=== PATIENT | female | born 1960 | race Caucasian/White ===

== ENCOUNTER → 2019-07-17 07:35 | Outpatient (CLI) | payer OTHER, SELFPAY ==
--- NOTE | ~2019-07-17 | US_ITS ---
EXAMINATION: US right upper quadrant DATE: 07/17/2019 08:17 INDICATION: Bloating. Early satiety. TECHNIQUE: Multiple grayscale and Doppler ultrasound images of the abdomen were obtained. COMPARISON: None FINDINGS: Abdominal aorta is normal in caliber. The visualized portions of the head, body, and tail o f the pancreas are normal. There is diffuse hepatic steatosis. There is normal flow in main portal ve in. The gallbladder is normal in size. No gallstones or gallbladder wall thickening. There was no son ographic Frausto sign. The common duct is normal and measures 3 mm. Right kidney is normal in size. IMPRESSION: 1. Diffuse hepatic steatosis. Reviewed, dictated and finalized at location A. MAN
== END ==
PROVIDERS: Visit Provider Obstetrics & Gynecology
DX: R14.0 Abdominal distension (gaseous) (principal); R68.81 Early satiety; Z01.419 Encounter for gynecological examination (general) (routine) without abnormal findings; Z11.51 Encounter for screening for human papillomavirus (HPV); K76.0 Fatty (change of) liver, not elsewhere classified
CPT/HCPCS: 76705

== ENCOUNTER → 2021-02-07 09:52 | Outpatient (CLI) | payer OTHER, SELFPAY ==
--- NOTE | ~2021-02-07 | MR_ITS ---
EXAMINATION: MR knee RT wo con DATE: 02/07/2021 10:41 INDICATION: Primary osteoarthritis of right knee. Right knee pain. TECHNIQUE: Magnetic resonance imaging (MRI) of the right knee was performed without intravenous contr ast. Sequences included axial PD-weighted FS FSE, coronal PD-weighted FSE and PD-weighted FS FSE, sag ittal PD-weighted FSE, and sagittal T2-weighted FS FSE. COMPARISON: None. FINDINGS: Medial compartment: There is a complex tear of body of medial meniscus. There is full-thickness cartilage loss of tibial condyle involving the medial articular surface with mild subchondral edema-like marrow signal intensi ty. There is full-thickness cartilage loss of femoral condyle involving the central and medial articu lar surface. There is extensive partial-thickness cartilage loss of femoral condyle and tibial condyl e. Marginal osteophytes are noted. Lateral compartment: Lateral meniscus is intact. There is deep partial thickness cartilage loss of tibial condyle involvin g the medial articular surface with mild subchondral edema-like marrow signal intensity. There is shelly p partial thickness cartilage loss of femoral condyle involving the central and medial articular surf layla. Osteophytes are noted. Patellofemoral compartment: There is deep partial thickness cartilage loss of patellar medial facet, median ridge, and lateral fa cet with moderate subchondral edema-like marrow signal intensity and lateral facet subchondral cysts. There is shallow partial-thickness cartilage loss of trochlea. Osteophytes are noted. Ligaments and tendons: The anterior and posterior cruciate ligaments are normal. There are changes of prior sprains of media l collateral ligament and fibular collateral ligament characterized by thickening and increased signa l intensity proximally. There is mild patellar tendinopathy. Fluid: There is a small knee joint effusion. IMPRESSION: 1. Severe chondrosis of medial compartment and moderate chondrosis of lateral and patellofemoral comp artments. 2. Tear of medial meniscus. 3. Small knee joint effusion. Reviewed, dictated and finalized at location A. IMPRESSION: 1. Severe chondrosis of medial compartment and moderate chondrosis of lateral a nd patellofemoral compartments. 2. Tear of medial meniscus. 3. Small knee joint effusion.
== END ==
DX: M17.11 Unilateral primary osteoarthritis, right knee (principal); M25.461 Effusion, right knee; S83.241A Other tear of medial meniscus, current injury, right knee, initial encounter
CPT/HCPCS: 73721

== ENCOUNTER → 2021-05-18 14:25 | Outpatient (CLI) | payer OTHER, SELFPAY ==
--- NOTE | ~2021-05-18 | MR_ITS ---
EXAMINATION: MR knee RT wo con DATE: 05/18/2021 15:10 INDICATION: Unilateral primary osteoarthritis of the right knee TECHNIQUE: Magnetic resonance imaging (MRI) of the right knee was performed without intravenous contr ast. Sequences included coronal PD-weighted FSE, coronal PD-weighted FS FSE, sagittal T2-weighted FS E, sagittal PD-weighted FS FSE and axial PD weighted fat saturated FSE. COMPARISON: None. FINDINGS: Medial compartment: Essentially absent medial meniscal body with relatively abrupt transition to normal-appearing body an d posterior horn which could represent sequela of prior partial meniscectomy in the appropriate clini serenity setting or meniscal tear with secondary meniscal degeneration. No evident displaced meniscal tiss ue although the cephalad-most aspect of the suprapatellar pouch is not included within the field-of-v iew of imaging. Severe joint space loss with extensive full/near full-thickness cartilage loss along the anterior to central weightbearing medial femoral condyle and along the medial side of the medial tibial plateau. There are regions of underlying increased subarticular marrow signal. Lateral compartment: Lateral meniscus is normal. Deep chondral ulceration and fissuring along the medial side of the later al tibial plateau with mild increased subarticular signal along the shoulder the intercondylar eminen ce. Additional partial thickness chondral ulceration and fissuring without degenerative subchondral c hanges at the anterior weightbearing lateral femoral condyle. Patellofemoral compartment: Deep chondral ulceration with subarticular cystlike change along the inferior aspect of the lateral p atellar facet, the central aspect of the apical ridge as well as the central aspect of the medial fac et. Trochlear cartilage appears relatively preserved. Ligaments and tendons: Anterior and posterior cruciate ligaments are normal. The medial collateral ligament and fibular prabhakar ateral ligament complex are normal. Tendinopathy at the proximal patellar tendon. The quadriceps tend on is normal. The visualized medial and lateral hamstring tendons as well as the iliotibial band are normal. Fluid: Moderate-sized right knee joint effusion at the suprapatellar pouch with mild scattered synovitis. No loose osteochondral bodies identified. Osseous/other: Bone alignment is normal. No fracture or pathologic marrow replacing process. IMPRESSION: 1. Essentially absent body of the medial meniscus which could represent either change of prior partia l meniscectomy, chronic meniscal tear with either secondary degeneration or displacement of meniscal tissue. Correlate with surgical history. 2. Severe osteoarthritis in the medial compartment with extensive high-grade chondromalacia. 3. Mild osteoarthritis with smaller regions of moderate and high-grade chondromalacia in the lateral and patellofemoral compartments. 4. Mild proximal patellar tendinopathy. 5. Moderate-sized right knee joint effusion. Reviewed, dictated and finalized at location A. ERGARTNER IMPRESSION: 1. Essentially absent body of the medial meniscus which could represent either change of prior partial meniscectomy, chronic meniscal tear with either seconda ry degeneration or displacement of meniscal tissue. Correlate with surgical his tory. 2. Severe osteoarthritis in the medial compartment with extensive high-grade ch ondromalacia. 3. Mild osteoarthritis with smaller regions of moderate and high-grade chondrom alacia in the lateral and patellofemoral compartments. 4. Mild proximal patellar tendinopathy. 5. Moderate-sized right knee joint effusion.
== END ==
DX: M17.11 Unilateral primary osteoarthritis, right knee (principal); M25.461 Effusion, right knee
CPT/HCPCS: 73721

== ENCOUNTER → 2022-08-25 17:00 | Outpatient (CLI) | payer OTHER, SELFPAY ==
--- NOTE | ~2022-08-25 | XR_ITS ---
EXAM: XR knee LT min 4V DATE: 08/25/2022 17:19 HISTORY: Acute left knee pain . COMPARISON: None available. FINDINGS: Normal mineralization. No fracture or dislocation. No lytic or blastic lesion. Moderate me dial joint space narrowing. Mild tricompartmental osteophytosis. Degenerative subchondral cysts along the posterior aspect of the patella. No erosion or periosteal change. Soft tissues within normal myles its. IMPRESSION: No acute osseous finding in the left knee. Tricompartmental left knee osteoarthritis, mod erate in the medial and patellofemoral compartments. Reviewed, dictated and finalized at location K. IMPRESSION: No acute osseous finding in the left knee. Tricompartmental left kn ee osteoarthritis, moderate in the medial and patellofemoral compartments.
== END ==
PROVIDERS: PCP Orthopaedic Surgery; Visit Provider Orthopaedic Surgery
DX: M17.12 Unilateral primary osteoarthritis, left knee (principal)
CPT/HCPCS: 73564

== ENCOUNTER → 2023-03-29 11:42 | Outpatient (CLI) | payer OTHER, SELFPAY ==
--- NOTE | ~2023-03-29 | XR_ITS ---
XR foot RT min 3V DATE: 03/29/2023 13:23 INDICATION: Right foot pain TECHNIQUE: 4 views COMPARISON: None FINDINGS: There is prominent cupping deformity of the head of the third metatarsal bone secondary pro minent osteoarthritis at the third metatarsophalangeal joint. Degenerative change at the tarsometatarsal joints. Likely degenerative cyst of the head of the proximal phalanx of the fifth toe. Plantar calcaneal enthesopathy. No recent fracture or dislocation, periosteal reaction or bone destruction is detected. 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 Reviewed, dictated and finalized at location A. IMPRESSION: Probable avascular necrosis or old fracture deformity of the head o f the third metatarsal bone with associated prominent secondary osteoarthritic change at the third metatarsophalangeal joint Polyarticular osteoarthritis Plantar calcaneal enthesopathy.
== END ==
DX: M19.071 Primary osteoarthritis, right ankle and foot (principal); M77.31 Calcaneal spur, right foot
CPT/HCPCS: 73630

== ENCOUNTER 2023-09-19 09:16 | Outpatient (CLI) | payer OTHER, SELFPAY ==
--- NOTE | ~2023-09-19 | XR_ITS ---
Right Knee Technique: AP, lateral, and sunrise views were obtained. Clinical History: Knee replacement Findings: No fracture or dislocation is seen. Knee arthroplasty in place, without evidence of hardwar e complication.. Soft tissues are unremarkable. No joint effusion is seen. Impression: No acute abnormality. Right knee arthroplasty in place. Reviewed, dictated and finalized at location . Impression: No acute abnormality. Right knee arthroplasty in place.
== END 2023-09-19 09:17 ==
LOC: MICIMG 09:19
PROVIDERS: PCP Orthopaedic Surgery; Visit Provider Orthopaedic Surgery
DX: M25.562 Pain in left knee (principal); Z96.651 Presence of right artificial knee joint
CPT/HCPCS: 73562; 73564

== ENCOUNTER 2024-12-26 10:14 | Outpatient (CLI) | payer OTHER, SELFPAY ==
--- NOTE | ~2024-12-26 | MR_ITS ---
EXAMINATION: MR knee LT wo con DATE: 12/26/2024 10:55 INDICATION: acute pain of left knee TECHNIQUE: Magnetic resonance imaging (MRI) of the left knee was performed without intravenous contra st. Sequences included axial PD-weighted FS FSE, coronal PD-weighted FSE and PD-weighted FS FSE, sagi ttal PD-weighted FSE, and sagittal T2-weighted FS FSE. COMPARISON: X-ray left knee 09/19/2023 FINDINGS: Medial compartment: Apical blunting and meniscal fraying. Severe diffuse thinning of cartilage. 2 mm focal full-thickness cartilage loss over the MFC. 3 mm focus of full-thickness cartilage loss over the medial tibial plat eau. Moderate osteophytosis. Small meniscal cyst at the posterior medial aspect of the posterior horn . Lateral compartment: Meniscus and cartilage intact. Mild osteophytosis. Patellofemoral compartment: Moderate cartilage thinning over the medial facet and median ridge. Subchondral cyst formation. Retin acula intact. Ligaments and tendons: The ACL, PCL, MCL, and LCL are intact. Remaining flexor and extensor tendons are intact. Fluid: No significant fluid collection. 7 mm loose body in the posterior joint recess. Osseous/other: No suspicious focal or diffuse marrow signal. Scattered areas of focal marrow edema in the medial com partment. IMPRESSION: Apical meniscal blunting and meniscal fraying. Posterior medial meniscal cyst which can accompany occ ult meniscal tears. Significant degenerative changes in the medial compartment including severe diffuse cartilage loss an d multifocal areas of full-thickness cartilage loss. 7 mm loose body in a posterior joint recess. Chondromalacia patellae Reviewed, dictated and finalized at location K. IMPRESSION: Apical meniscal blunting and meniscal fraying. Posterior medial meniscal cyst w hich can accompany occult meniscal tears. Significant degenerative changes in the medial compartment including severe dif fuse cartilage loss and multifocal areas of full-thickness cartilage loss. 7 mm loose body in a posterior joint recess. Chondromalacia patellae
== END 2024-12-26 10:15 | disposition home or self-care (01) ==
PROVIDERS: PCP Nurse Practitioner; Visit Provider Orthopaedic Surgery
DX: M23.42 Loose body in knee, left knee (principal)
CPT/HCPCS: 73721

== ENCOUNTER 2025-02-13 10:22 | Outpatient (CLI) | payer OTHER, SELFPAY ==
--- NOTE | ~2025-02-13 | CT_ITS ---
EXAMINATION:CT diagnostic chest w con DATE: 02/13/2025 10:52 INDICATION: Abnormal finding on lung imaging. TECHNIQUE: Computed tomography (CT) of the chest was performed with 75 mL Omnipaque 350 intravenous contrast. Automated exposure control and iterative reconstruction technique were employed. The dose-length product (DLP) was 472.81 mGy-cm. COMPARISON: None. FINDINGS: The lungs demonstrate mild atelectasis. Calcified left lung nodules and calcified left hilar lymph nodes are consistent with old granulomatous disease. No pleural effusion. The heart size is normal. No pericardial effusion. Calcifications in the spleen are consistent with old granulomatous disease. There is a 7 mm cyst in left kidney. There is mild thoracic spondylosis. IMPRESSION: 1. No significant lung disease. Reviewed, dictated and finalized at location E.
[2025-02-13 10:44] LABS: Estimated Glomerular Filt Rate 45
== END 2025-02-13 10:23 | disposition home or self-care (01) ==
PROVIDERS: PCP Nurse Practitioner; Visit Provider Nurse Practitioner
DX: R91.8 Other nonspecific abnormal finding of lung field (principal)
CPT/HCPCS: 71260; Q9967

== ENCOUNTER 2025-02-25 10:33 | Outpatient (CLI) | payer OTHER, SELFPAY ==
--- NOTE | ~2025-02-25 | MR_ITS ---
EXAMINATION: MR abdomen wo/w con DATE: 02/25/2025 11:33 INDICATION: Abnormal findings of left kidney. TECHNIQUE: Magnetic resonance imaging (MRI) of the abdomen was performed without and with 19 mL MultiHance intravenous contrast. COMPARISON: Chest CT 02/13/2025 FINDINGS: There is diffuse hepatic steatosis. Calcifications in the spleen are consistent with old granulomatous disease. The gallbladder, pancreas, and adrenal glands are normal. There are cysts in the kidneys measuring up to 10 mm on the left. There are hemorrhagic cysts in left kidney measuring up to 7 mm. There are no dilated loops of bowel. There are no pathologically enlarged lymph nodes. There is no free intraperitoneal fluid. IMPRESSION: 1. Benign cysts in left kidney. Reviewed, dictated and finalized at location E.
== END 2025-02-25 10:34 | disposition home or self-care (01) ==
LOC: MICIMG 10:34
PROVIDERS: PCP Nurse Practitioner; Visit Provider Nurse Practitioner
DX: R93.422 Abnormal radiologic findings on diagnostic imaging of left kidney (principal); N28.1 Cyst of kidney, acquired
CPT/HCPCS: 74183; A9577